=== PATIENT | male | born 1960 | race Two or more races ===

== ENCOUNTER 2023-04-22 09:54 | Emergency (ER) | payer BC, OTHER ==
[~2023-04-22] VITALS: Ht 165.1 cm; Wt 73.2 kg
[2023-04-22 10:45] VITALS: BP 133/82; PULSE 87; RESP 14; TEMP 97.5; O2SAT 96
[2023-04-22] MEDS ORDERED: cefTRIAXone 1GM/50ML D5W 50 ML IV ONE (11:30)
== END 2023-04-22 12:21 | disposition home or self-care (01) ==
LOC: ER 09:54
DX: S51.012D Laceration without foreign body of left elbow, subsequent encounter (principal); L08.9 Local infection of the skin and subcutaneous tissue, unspecified; W54.0XXD Bitten by dog, subsequent encounter
CPT/HCPCS: 10060; 96365; 99284; J0696

== ENCOUNTER 2023-04-23 11:17 | Emergency (ER) | payer BC ==
[~2023-04-23] VITALS: Ht 165.1 cm; Wt 72.7 kg
[2023-04-23 13:03] VITALS: BP 130/83; PULSE 82; RESP 16; TEMP 98; O2SAT 95
[2023-04-23] MEDS ORDERED: cefTRIAXone 1GM/50ML D5W 50 ML IV ONE (13:30)
== END 2023-04-23 14:18 | disposition home or self-care (01) ==
LOC: ER 11:17
DX: S40.872D Other superficial bite of left upper arm, subsequent encounter (principal)
CPT/HCPCS: 96365; 99284; J0696

== ENCOUNTER 2023-04-27 10:24 | Emergency (ER) | payer BC ==
[~2023-04-27] VITALS: Ht 165.1 cm; Wt 73.5 kg
[2023-04-27] MEDS ORDERED: BACI1OIN45 EX (12:15)
[2023-04-27] MEDS ORDERED: AUG875T PO (12:15)
[2023-04-27 12:24] VITALS: BP 144/84; PULSE 64; RESP 18; TEMP 98; O2SAT 96
== END 2023-04-27 12:26 | disposition home or self-care (01) ==
LOC: ER 10:24
DX: S41.152D Open bite of left upper arm, subsequent encounter (principal); W54.0XXD Bitten by dog, subsequent encounter